=== PATIENT | female | born 1985 | race Caucasian/White ===

== ENCOUNTER 2018-04-25 09:52 | Emergency (ER) | payer MEDICAID ==
[~2018-04-25] VITALS: Ht 152.4 cm; Wt 60.9 kg
[2018-04-25 11:45] LABS: ANION GAP 12 mmol/L (8-16); CALCIUM, TOTAL 9.2 mg/dL (8.8-10.5); CARBON DIOXIDE 23 mmol/L (22-29); CHLORIDE 102 mmol/L (98-107); GLOMERULAR FILTR. RATE CALC > 60 mL/min (>60); GLUCOSE,RANDOM 105 mg/dL (70-110); POTASSIUM 3.9 mmol/L (3.5-5.1); SODIUM SERUM 137 mmol/L (136-145); UREA NITROGEN, BLOOD 9 mg/dL (7-18)
[2018-04-25] MEDS ORDERED: IOVERSOL 350 MG/ML 100 ML VIAL ONE (12:00)
[2018-04-25 12:01] LABS: FREE T4 (FREE THYROXINE) 1.72 ng/dL (0.76-1.46); THYROID STIMULATING HORMONE 0.01 uIU/mL (0.36-3.74)
[2018-04-25 14:04] VITALS: BP 123/73
== END 2018-04-25 14:25 | disposition home or self-care (01) ==
LOC: EMS 09:54
DX: E05.90 Thyrotoxicosis, unspecified without thyrotoxic crisis or storm (principal)
CPT/HCPCS: 36415; 70491; 76536; 80048; 84439; 84443; 84703; 99285; Q9967

== ENCOUNTER 2018-04-27 15:52 | Emergency (ER) | payer MEDICAID ==
[~2018-04-27] VITALS: Ht 160 cm; Wt 60.9 kg
[2018-04-27 16:04] VITALS: BP 148/88
== END 2018-04-27 17:45 | disposition home or self-care (01) ==
LOC: EMS 15:52
DX: E04.1 Nontoxic single thyroid nodule (principal)
CPT/HCPCS: 99281

== ENCOUNTER 2023-04-11 09:16 | Emergency (ER) | payer MEDICAID ==
[~2023-04-11] VITALS: Ht 157.5 cm; Wt 57.7 kg
[2023-04-11] MEDS ORDERED: IBUP-1492 PO (11:39)
[2023-04-11 11:52] VITALS: BP 128/65
== END 2023-04-11 12:01 | disposition home or self-care (01) ==
LOC: EMS 09:16
DX: M75.31 Calcific tendinitis of right shoulder (principal)
CPT/HCPCS: 99283

== ENCOUNTER 2023-10-24 08:50 | Emergency (ER) | payer MEDICAID ==
[~2023-10-24] VITALS: Ht 157.5 cm; Wt 63.6 kg
[~2023-10-24 08:50] MED LIST: IBUP-1492 PO
[2023-10-24 09:21] VITALS: TEMP 98.2
[2023-10-24 10:00] LABS: BASOPHILS % (AUTO) 0.8 % (0.0-2.0); EOSINOPHILS % (AUTO) 0.3 % (1.0-6.0); HEMATOCRIT 37.1 % (36-46); HEMOGLOBIN 12.5 g/dL (12.0-16.0); LYMPHOCYTES # (AUTO) 1.6 K/uL (1.0-4.8); MEAN CORPUSCULAR HEMOGLOBIN 29.8 pg (26.0-34.0); MEAN CORPUSCULAR HGB CONC 33.7 G/dL (31.0-37.0); MEAN CORPUSCULAR VOLUME 89 fL (80-100); MONOCYTES # (AUTO) 0.3 K/uL (0.1-1.0); MONOCYTES % (AUTO) 4.7 % (2.0-9.0); NEUTROPHILS # (AUTO) 4.9 K/uL (1.8-7.7); NEUTROPHILS % (AUTO) 71.2 % (40.0-70.0); PLATELET COUNT (AUTO) 183 K/uL (150-450); RED BLOOD CELL COUNT(AUTO) 4.19 MIL/uL (4.00-5.20); RED CELL DISTRIBUTION WIDTH 13.1 % (11.5-14.5); WHITE BLOOD COUNT (AUTO) 6.9 K/uL (4.5-11.0)
[2023-10-24 10:23] LABS: ALANINE AMINOTRANSFERASE 26 U/L (12-78); ALBUMIN 3.7 g/dL (3.4-5.0); ALKALINE PHOSPHATASE 35 U/L (46-116); ANION GAP 8 mmol/L (8-16); ASPARTATE AMINOTRANSFERASE 20 U/L (15-37); BILIRUBIN,TOTAL 0.3 mg/dL (0.1-1.0); CARBON DIOXIDE 26 mmol/L (22-29); CHLORIDE 103 mmol/L (98-107); CREATININE 0.72 mg/dL (0.60-1.30); GLOMERULAR FILTR. RATE CALC > 60 mL/min (>60); GLUCOSE,RANDOM 105 mg/dL (70-110); LIPASE 54 U/L (16-77); POTASSIUM 4.3 mmol/L (3.5-5.1); SODIUM SERUM 137 mmol/L (136-145); TOTAL PROTEIN, SERUM 8.8 g/dL (6.4-8.2); UREA NITROGEN, BLOOD 11 mg/dL (7-18)
[2023-10-24 10:41] LABS: APPEARANCE,URINE CLEAR (CLEAR); BILIRUBIN,URINE NEGATIVE (NEGATIVE); COLOR,URINE COLORLESS (YELLOW); GLUCOSE, URINE (UA) NEGATIVE (NEGATIVE); KETONES,URINE NEGATIVE (NEGATIVE); LEUKOCYTE ESTERASE ,URINE NEGATIVE (NEGATIVE); NITRATE,URINE NEGATIVE (NEGATIVE); OCCULT BLOOD,URINE NEGATIVE (NEGATIVE); PROTEIN,URINE NEGATIVE (NEGATIVE); SPECIFIC GRAVITIY, URINE 1.004 (1.003-1.030); UROBILINOGEN,URINE <=1.0 mg/dL (<=1.0)
[2023-10-24] MEDS ORDERED: IBUP-1554 PO (11:57)
[2023-10-24 12:09] VITALS: BP 119/78; PULSE 78; RESP 16
== END 2023-10-24 12:12 | disposition home or self-care (01) ==
LOC: EMS 08:50
DX: N94.6 Dysmenorrhea, unspecified (principal); M54.50 Low back pain, unspecified; R10.2 Pelvic and perineal pain
CPT/HCPCS: 76705; 76856; 80053; 81003; 83690; 84703; 85025; 99284